=== PATIENT | female | born 1995 | race Caucasian/White ===

== ENCOUNTER 2017-07-13 09:18 | Emergency (ER) | payer OTHER ==
[~2017-07-13] VITALS: Ht 172.7 cm; Wt 60.6 kg
[2017-07-13] MEDS ORDERED: PEPCID20 MG PO (11:24)
[2017-07-13] MEDS ORDERED: PREDNISONE50 MG PO (11:24)
[2017-07-13] MEDS ORDERED: EPIPEN ADU0.3 MG/0.3 IM (11:24)
[2017-07-13 11:44] VITALS: BP 114/62
== END 2017-07-13 11:48 | disposition home or self-care (01) ==
LOC: EME 09:18
DX: T78.40XA Allergy, unspecified, initial encounter (principal)
CPT/HCPCS: 99281; 99284; J7512